=== PATIENT | female | born 1985 | race American Indian/Alaskan Native ===

== ENCOUNTER 2017-04-08 14:26 | Emergency (ER) | payer SELFPAY ==
[2017-04-08 16:12] LABS: Alanine Aminotransferase 10 units/L (7-56); Albumin/Globulin Ratio 1.6 %; Alkaline Phosphatase 57 units/L (35-129); Anion Gap 17 mmol/L; Blood Urea Nitrogen 12 mg/dL (7-17); Calcium 9.3 mg/dL (8.4-10.2); Carbon Dioxide 25 mmol/L (22-30); Chloride 103.5 mmol/L (98-107); Glucose 79 mg/dL (65-100); Potassium 4.3 mmol/L (3.6-5.0); Sodium 141 mmol/L (137-145); Total Protein 6.5 g/dL (6.3-8.2)
[2017-04-08 16:24] LABS: Basophils % (Auto) 0.9 % (0.0-1.8); Eosinophils % (Auto) 1.7 % (0.0-4.3); Hematocrit 40.6 % (30.3-42.9); Hemoglobin 13.4 gm/dl (10.1-14.3); Mean Corpuscular HGB Conc 33 % (30-34); Mean Corpuscular Hemoglobin 32 pg (28-32); Mean Corpuscular Volume 96 fl (79-97); Platelet Count 261 K/mm3 (140-440); Red Blood Count 4.24 M/mm3 (3.65-5.03); White Blood Count 5.3 K/mm3 (4.5-11.0)
[2017-04-08] MEDS ORDERED: KEPPRA 1,000 MG/NS 0.75% 100ML 1,000 MG/100 ML BAG IV ONE (16:50)
[2017-04-08] MEDS ORDERED: FIORICET PO ONE (16:50)
--- NOTE | 2017-04-08 16:57 | Emergency Department Report ---
HPI - General Chief Complaint: Seizure Time Seen by Provider: 04/08/17 16:41 - HPI HPI: Room 9 The patient is a 31-year-old female presenting with a chief complaint seizure. Patient has history of multiple sclerosis and seizures. The patient states she' s had seizures in 2011 and supposed to take Keppra. Patient states she has not had Keppra since October 2016. Patient states today upon became clammy and she felt palpitations and then reportedly had a seizure at home. EMS was called and patient was transported to the ED. The patient states she now feels tired has a headache and jaw pain. Patient states suffered see the other symptoms are consistent with how she feels after previous seizures. Location: Central nervous system Duration: Today just prior to arrival Quality: Headache Severity:03/29 Modifying factors: [see above] Context: [see above] Mode of transportation: [not driving] ED Past Medical Hx - Past Medical History Hx of Cancer: Yes (cervical CA diagnosed 2014 no tx or f/u) Additional medical history: Multiple sclerosis - Surgical History Additional Surgical History: Neck biopsy - Family History Family history: no significant - Social History Smoking Status: Current Every Day Smoker (1/3 pack per day) Substance Use Type: Alcohol (occasional), Marijuana - Medications Home Medications: Home Medications Medication Instructions Recorded Confirmed Last Taken Type Butalb/Acetamin/Caff 50-325-40 2 tab PO Q8H PRN #10 tablet 04/08/17 Unknown Rx [Fioricet] levETIRAcetam [Keppra TAB] 500 mg PO BID #90 tablet 04/08/17 Unknown Rx ED Review of Systems ROS: Stated complaint: SEIZURE AND HEADACHE Other details as noted in HPI Comment: All other systems reviewed and negative Constitutional: malaise. denies: chills, fever Eyes: denies: eye pain, eye discharge, vision change ENT: denies: ear pain, throat pain Respiratory: denies: cough, shortness of breath, wheezing Cardiovascular: denies: chest pain, palpitations Endocrine: no symptoms reported Gastrointestinal: denies: abdominal pain, nausea, diarrhea Genitourinary: denies: urgency, dysuria, discharge Musculoskeletal: denies: back pain, joint swelling, arthralgia Skin: denies: rash, lesions Neurological: headache, other (seizure) Psychiatric: denies: anxiety, depression Hematological/Lymphatic: denies: easy bleeding, easy bruising Physical Exam - Physical Exam Vital Signs: Vital Signs 04/08/17 14:53 Temperature 98.4 F Pulse Rate 62 Respiratory 16 Rate Blood Pressure 101/41 O2 Sat by Pulse 100 Oximetry Physical Exam: GENERAL: The patient is well-developed well-nourished female lying on stretcher not appearing to be in acute distress. [] HEENT: Normocephalic. Atraumatic. Extraocular motions are intact. Patient has moist mucous membranes. NECK: Supple. No meningitic signs are noted. There is no adenopathy noted. CHEST/LUNGS: Clear to auscultation. There is no respiratory distress noted. HEART/CARDIOVASCULAR: Regular. There is no tachycardia. There is no gallop rub or murmur. ABDOMEN: Abdomen is soft, nontender. Patient has normal bowel sounds. There is no abdominal distention. SKIN: There is no rash. There is no edema. There is no diaphoresis. NEURO: The patient is awake, alert, and oriented. The patient is cooperative. The patient has no focal neurologic deficits. The patient has normal speech. Cranial nerves II through XII grossly intact, no drift, stain wiper equal bilaterally MUSCULOSKELETAL: There is no evidence of acute injury. ED Course Vital Signs 04/08/17 14:53 Temperature 98.4 F Pulse Rate 62 Respiratory 16 Rate Blood Pressure 101/41 O2 Sat by Pulse 100 Oximetry ED Medical Decision Making - Lab Data Result diagrams: 04/08/17 15:36 04/08/17 15:36 Laboratory Tests 04/08/17 04/08/17 04/08/17 15:36 15:36 16:42 WBC 5.3 RBC 4.24 Hgb 13.4 Hct 40.6 MCV 96 MCH 32 MCHC 33 RDW 13.0 L Plt Count 261 Lymph % (Auto) 35.8 H Gilpin % (Auto) 9.4 H Eos % (Auto) 1.7 Baso % (Auto) 0.9 Lymph # 1.9 Gilpin # 0.5 Eos # 0.1 Baso # 0.0 Seg Neutrophils % 52.2 Seg Neutrophils # 2.7 Sodium 141 Potassium 4.3 Chloride 103.5 Carbon Dioxide 25 Anion Gap 17 BUN 12 Creatinine 0.6 L Estimated GFR > 60 BUN/Creatinine Ratio 20.00 Glucose 79 Calcium 9.3 Total Bilirubin 0.20 AST 11 ALT 10 Alkaline Phosphatase 57 Total Protein 6.5 Albumin 4.0 Albumin/Globulin Ratio 1.6 HCG, Qual Negative - Differential Diagnosis seizure Critical care attestation.: If time is entered above; I have spent that time in minutes in the direct care of this critically ill patient, excluding procedure time. ED Disposition Clinical Impression: Seizure Disposition: TO HOME OR SELFCARE Is pt being admited?: No Does the pt Need Aspirin: No Condition: Stable Instructions: Recurrent Seizures Adult (ED) Additional Instructions: Return to the emergency department immediately should you develop worsening symptoms, fever, inability to tolerate food or liquid or any other concerns. Prescriptions: Butalb/Acetamin/Caff 50-325-40 [Fioricet] 2 tab PO Q8H PRN #10 tablet PRN Reason: Headache levETIRAcetam [Keppra TAB] 500 mg PO BID #90 tablet Referrals: [facility] [place] [Outside] - [place] (Please follow up with the [facility] clinic immediately for further evaluation of your previous diagnosis of cervical cancer) PILAR WHYTE MD [Staff Physician] - [place] (Dr. Whyte is an [employer]. Please follow up with her for further evaluation of your previous diagnosis of cervical cancer) Time of Disposition: 17:01
[2017-04-08 18:01] VITALS: BP 109/40
== END 2017-04-08 17:45 | disposition home or self-care (01) ==
LOC: ED 14:26
DX: R56.9 Unspecified convulsions (principal); F17.210 Nicotine dependence, cigarettes, uncomplicated; F12.10 Cannabis abuse, uncomplicated
CPT/HCPCS: 36415; 80053; 84703; 85025; 93005; 93010; 96374; 99284; J1953

== ENCOUNTER 2019-02-22 11:02 | Emergency (ER) | payer MEDICAID, OTHER ==
[2019-02-22] MEDS ORDERED: BOOSTRIX IM ONE (11:12)
[2019-02-22] MEDS ORDERED: KEPPRA 1,000 MG/NS 0.75% 100ML 1,000 MG/100 ML BAG IV ONE (11:12)
[2019-02-22] MEDS ORDERED: NACL 0.9% 500 ML 500 ML IV ONE ×2 (11:12)
[2019-02-22] MEDS ORDERED: MORPHINE IV ONE (11:12)
[2019-02-22] MEDS ORDERED: ATIVAN IV STA (11:14)
[2019-02-22] MEDS ORDERED: ATIVAN ONE (11:18)
--- NOTE | 2019-02-22 11:18 | Emergency Department Report ---
ED General Adult HPI - General Chief complaint: Head Injury Stated complaint: FALL/15 STEPS Time Seen by Provider: 02/22/19 11:06 Source: patient, RN notes reviewed Mode of arrival: Ambulatory Limitations: No Limitations - History of Present Illness Initial comments: This is a 34-year-old female. The patient is not known to this provider previously. The patient may have a history of seizure disorder, she is not certain. She states that she is not . Patient presents to the ER with a complaint of weakness and headache after mechanical fall yesterday. She apparently fell down 15 stairs. This happened last night. She did not seek medical attention. She complains of superior lip pain, and right thumb pain. She also complains of neck pain. She is not taking any seizure medications since September. Apparently, she had a seizure in the waiting room. In the emergency room, on my evaluation, initially presents with a GCS of 15. Airway open, patent and intact. Breath sounds clear to auscultation bilaterally. 2+ pulses in the bilateral upper, lower extremities. Blood pressure 126/57. GCS of 15. On exposure, abrasions noted to superior lip. Secondary survey unremarkable. Shortly after my initial primary survey, was reported to have a convulsive event, which lasted for a few seconds, and then resolved. Shortly thereafter, vomited times one. Patient now awake, anxious, protecting airway. Emergently loaded with Keppra, IV fluids. She will be given pain medication. Code trauma called overhead. -: hour(s) Location: head, neck, right, upper extremity Consistency: constant Improves with: rest Worsens with: movement - Related Data Previous Rx's Medication Instructions Recorded Last Taken Type Butalb/Acetamin/Caff 50-325-40 2 tab PO Q8H PRN #10 tablet 04/08/17 Unknown Rx [Fioricet 50-325-40] levETIRAcetam [Keppra TAB] 500 mg PO BID #90 tablet 04/08/17 Unknown Rx Allergies Allergy/AdvReac Type Severity Reaction Status Date / Time No Known Allergies Allergy Verified 02/22/19 11:03 ED Review of Systems ROS: Stated complaint: FALL/15 STEPS Other details as noted in HPI Constitutional: malaise. denies: fever Eyes: denies: eye discharge ENT: other (lip contusion, left upper). denies: epistaxis Respiratory: denies: cough Cardiovascular: denies: palpitations Gastrointestinal: nausea, vomiting Musculoskeletal: arthralgia, myalgia Skin: lesions Neurological: headache Psychiatric: anxiety ED Past Medical Hx - Past Medical History Additional medical history: Multiple sclerosis - Surgical History Additional Surgical History: Neck biopsy - Social History Smoking Status: Current Every Day Smoker (1/3 pack per day) Substance Use Type: Alcohol (occasional), Marijuana - Medications Home Medications: Home Medications Medication Instructions Recorded Confirmed Last Taken Type Butalb/Acetamin/Caff 50-325-40 2 tab PO Q8H PRN #10 tablet 04/08/17 Unknown Rx [Fioricet 50-325-40] levETIRAcetam [Keppra TAB] 500 mg PO BID #90 tablet 04/08/17 Unknown Rx ED Physical Exam - General Limitations: No Limitations General appearance: alert, anxious, in distress - Head Head exam: Present: atraumatic, normocephalic - Eye Eye exam: Present: normal appearance, PERRL, EOMI. Absent: nystagmus - ENT ENT exam: Present: normal exam (inferior lip abrasion), mucous membranes moist, TM's normal bilaterally - Neck Neck exam: Present: normal inspection, tenderness - Respiratory Respiratory exam: Present: normal lung sounds bilaterally. Absent: respiratory distress - Cardiovascular Cardiovascular Exam: Present: regular rate, normal rhythm, normal heart sounds. Absent: bradycardia, tachycardia, irregular rhythm, systolic murmur, diastolic murmur, rubs, gallop - GI/Abdominal GI/Abdominal exam: Present: soft. Absent: distended, tenderness, guarding, rebound, rigid, pulsatile mass - Rectal Rectal exam: Present: normal inspection, other (chaperoned by nurse Ines Woodruff) - External exam: Present: normal external exam, other (chaperoned by nurse Ines Koch) - Extremities Exam Extremities exam: Present: normal inspection, tenderness (tenderness at the base of the right thumb.), other (2+ pulses noted in the bilateral upper, lower extremities. Compartments soft. No long bony tenderness. The pelvis is stable.). Absent: calf tenderness - Back Exam Back exam: Present: normal inspection. Absent: tenderness, CVA tenderness (R), paraspinal tenderness, vertebral tenderness - Neurological Exam Neurological exam: Present: alert, oriented X3, other (Extraocular movements intact. Tongue midline. No facial droop. Facial sensation intact to light touch in the V1, V2, V3 distribution bilaterally. 5 and 5 strength in 4 extremities.. Sensation is intact to light touch in 4 extremities.). Absent: motor sensory deficit - Psychiatric Psychiatric exam: Present: anxious - Skin Skin exam: Present: warm, abrasion ED Course Vital Signs 02/22/19 02/22/19 02/22/19 11:45 11:54 11:56 Temperature 98.1 F Pulse Rate 81 74 Respiratory 15 18 18 Rate Blood Pressure 105/56 Blood Pressure 121/83 [Left] O2 Sat by Pulse 100 100 100 Oximetry 02/22/19 02/22/19 02/22/19 12:15 12:45 13:10 Temperature Pulse Rate 62 90 65 Respiratory 12 18 13 Rate Blood Pressure 108/61 113/71 Blood Pressure 95/53 [Left] O2 Sat by Pulse 100 97 99 Oximetry - Reevaluation(s) Reevaluation #1: 02/22/19 11:28 Differential diagnosis, including but not limited to, intracranial injury, cervical spine injury, facial injury, thumb injury, breakthrough seizure, concussion, traumatic seizures Assessment and plan: 33-year-old female with a reported mechanical fall, possible history of seizure disorder, now, having had 2 seizures in the ER, initial GCS of 15, current GCS of 15, protecting her airway, and hemodynamically stable. Emergent imaging pending. Screening laboratory studies pending. Omer sea has been treated, pain has been treated, seizures have been treated, we will reassess after her data points have resulted. Reevaluation #2: 02/22/19 12:21 CT scan of the brain, facial bones, cervical spine negative for acute disease. Reevaluation #3: 02/22/19 13:12 X-ray of the right hand, chest, pelvis negative for acute disease. No addit ional convulsive events. Resting comfortably. No acute distress. Reevaluation #4: 02/22/19 13:43 No midline cervical spine tenderness on repeat examination. Speaking in full sentences, has a GCS of 15. No recurrent convulsive events. Cervical collar is cleared. Patient drinking soda, which we have not cleared her to do. Explained to patient that plan is to transfer her to [facility], for history of blunt trauma, with multiple convulsions, as this hospital does not have neurosurgery, or trauma surgery available for consultation. Patient endorses understanding and is amenable to transfer. Patient is accepted by Dr. Cedeno ED Medical Decision Making - Lab Data Result diagrams: 02/22/19 11:16 02/22/19 11:16 Lab Results 02/22/19 02/22/19 Range/Units 11:16 11:16 WBC 9.6 (4.5-11.0) K/mm3 RBC 4.48 (3.65-5.03) M/mm3 Hgb 14.5 H (10.1-14.3) gm/dl Hct 42.9 (30.3-42.9) % MCV 96 (79-97) fl MCH 33 H (28-32) pg MCHC 34 (30-34) % RDW 13.3 (13.2-15.2) % Plt Count 295 (140-440) K/mm3 Lymph % (Auto) 28.1 (13.4-35.0) % Tillman % (Auto) 10.7 H (0.0-7.3) % Eos % (Auto) 1.2 (0.0-4.3) % Baso % (Auto) 0.4 (0.0-1.8) % Lymph # 2.7 (1.2-5.4) K/mm3 Tillman # 1.0 H (0.0-0.8) K/mm3 Eos # 0.1 (0.0-0.4) K/mm3 Baso # 0.0 (0.0-0.1) K/mm3 Seg Neutrophils % 59.6 (40.0-70.0) % Seg Neutrophils # 5.7 (1.8-7.7) K/mm3 POC Glucose 81 (70-105) Vital Signs 02/22/19 02/22/19 11:54 11:56 Temperature 98.1 F Pulse Rate 74 Respiratory 18 18 Rate Blood Pressure 121/83 [Left] O2 Sat by Pulse 100 100 Oximetry Lab Results 02/22/19 02/22/19 02/22/19 Range/Units 11:16 11:16 11:16 WBC 9.6 (4.5-11.0) K/mm3 RBC 4.48 (3.65-5.03) M/mm3 Hgb 14.5 H (10.1-14.3) gm/dl Hct 42.9 (30.3-42.9) % MCV 96 (79-97) fl MCH 33 H (28-32) pg MCHC 34 (30-34) % RDW 13.3 (13.2-15.2) % Plt Count 295 (140-440) K/mm3 Lymph % (Auto) 28.1 (13.4-35.0) % Tillman % (Auto) 10.7 H (0.0-7.3) % Eos % (Auto) 1.2 (0.0-4.3) % Baso % (Auto) 0.4 (0.0-1.8) % Lymph # 2.7 (1.2-5.4) K/mm3 Tillman # 1.0 H (0.0-0.8) K/mm3 Eos # 0.1 (0.0-0.4) K/mm3 Baso # 0.0 (0.0-0.1) K/mm3 Seg Neutrophils % 59.6 (40.0-70.0) % Seg Neutrophils # 5.7 (1.8-7.7) K/mm3 PT 12.8 (12.2-14.9) Sec. INR 0.99 (0.87-1.13) Sodium (137-145) mmol/L Potassium (3.6-5.0) mmol/L Chloride (98-107) mmol/L Carbon Dioxide (22-30) mmol/L Anion Gap mmol/L BUN (7-17) mg/dL Creatinine (0.7-1.2) mg/dL Estimated GFR ml/min BUN/Creatinine Ratio % Glucose (65-100) mg/dL POC Glucose 81 (70-105) Calcium (8.4-10.2) mg/dL Magnesium (1.7-2.3) mg/dL Total Bilirubin (0.1-1.2) mg/dL AST (5-40) units/L ALT (7-56) units/L Alkaline Phosphatase (35-129) units/L Total Creatine Kinase (30-135) units/L Total Protein (6.3-8.2) g/dL Albumin (3.9-5) g/dL Albumin/Globulin Ratio % HCG, Quant (0-4) mIU/mL Plasma/Serum Alcohol (0-0.07) % 07/06/19 07/06/19 07/06/19 Range/Units 11:16 11:16 11:16 WBC (4.5-11.0) K/mm3 RBC (3.65-5.03) M/mm3 Hgb (10.1-14.3) gm/dl Hct (30.3-42.9) % MCV (79-97) fl MCH (28-32) pg MCHC (30-34) % RDW (13.2-15.2) % Plt Count (140-440) K/mm3 Lymph % (Auto) (13.4-35.0) % Tillman % (Auto) (0.0-7.3) % Eos % (Auto) (0.0-4.3) % Baso % (Auto) (0.0-1.8) % Lymph # (1.2-5.4) K/mm3 Tillman # (0.0-0.8) K/mm3 Eos # (0.0-0.4) K/mm3 Baso # (0.0-0.1) K/mm3 Seg Neutrophils % (40.0-70.0) % Seg Neutrophils # (1.8-7.7) K/mm3 PT (12.2-14.9) Sec. INR (0.87-1.13) Sodium 140 (137-145) mmol/L Potassium 3.9 (3.6-5.0) mmol/L Chloride 105.2 (98-107) mmol/L Carbon Dioxide 20 L (22-30) mmol/L Anion Gap 19 mmol/L BUN 7 (7-17) mg/dL Creatinine 0.7 (0.7-1.2) mg/dL Estimated GFR > 60 ml/min BUN/Creatinine Ratio 10 % Glucose 101 H (65-100) mg/dL POC Glucose (70-105) Calcium 9.0 (8.4-10.2) mg/dL Magnesium 1.70 (1.7-2.3) mg/dL Total Bilirubin 0.50 (0.1-1.2) mg/dL AST 21 (5-40) units/L ALT 13 (7-56) units/L Alkaline Phosphatase 58 (35-129) units/L Total Creatine Kinase 119 (30-135) units/L Total Protein 7.7 (6.3-8.2) g/dL Albumin 4.2 (3.9-5) g/dL Albumin/Globulin Ratio 1.2 % HCG, Quant (0-4) mIU/mL Plasma/Serum Alcohol < 0.01 (0-0.07) % 02/22/19 Range/Units 11:16 WBC (4.5-11.0) K/mm3 RBC (3.65-5.03) M/mm3 Hgb (10.1-14.3) gm/dl Hct (30.3-42.9) % MCV (79-97) fl MCH (28-32) pg MCHC (30-34) % RDW (13.2-15.2) % Plt Count (140-440) K/mm3 Lymph % (Auto) (13.4-35.0) % Tillman % (Auto) (0.0-7.3) % Eos % (Auto) (0.0-4.3) % Baso % (Auto) (0.0-1.8) % Lymph # (1.2-5.4) K/mm3 Tillman # (0.0-0.8) K/mm3 Eos # (0.0-0.4) K/mm3 Baso # (0.0-0.1) K/mm3 Seg Neutrophils % (40.0-70.0) % Seg Neutrophils # (1.8-7.7) K/mm3 PT (12.2-14.9) Sec. INR (0.87-1.13) Sodium (137-145) mmol/L Potassium (3.6-5.0) mmol/L Chloride (98-107) mmol/L Carbon Dioxide (22-30) mmol/L Anion Gap mmol/L BUN (7-17) mg/dL Creatinine (0.7-1.2) mg/dL Estimated GFR ml/min BUN/Creatinine Ratio % Glucose (65-100) mg/dL POC Glucose (70-105) Calcium (8.4-10.2) mg/dL Magnesium (1.7-2.3) mg/dL Total Bilirubin (0.1-1.2) mg/dL AST (5-40) units/L ALT (7-56) units/L Alkaline Phosphatase (35-129) units/L Total Creatine Kinase (30-135) units/L Total Protein (6.3-8.2) g/dL Albumin (3.9-5) g/dL Albumin/Globulin Ratio % HCG, Quant < 2 (0-4) mIU/mL Plasma/Serum Alcohol (0-0.07) % - EKG Data -: EKG Interpreted by Mo EKG shows normal: sinus rhythm Rate: normal - EKG Data 02/22/19 11:29 EKG shows sinus, 78 bpm, normal axis, QTC 448 ms, borderline atrial enlargement, sinus arrhythmia, no endorsement of chest pain, this EKG is not consistent with ST elevation myocardial infarction. - Radiology Data Radiology results: pending, report reviewed, image reviewed Noncontrast CT scan of the brain, facial bones, cervical spine negative for acute disease. Plain films of the right hand, pelvis, chest negative for acute disease. Critical care attestation.: If time is entered above; I have spent that time in minutes in the direct care of this critically ill patient, excluding procedure time. ED Disposition Clinical Impression: Fall (on) (from) other stairs and steps, initial encounter, Seizures, Noncompliance with medication regimen Disposition: [id number]/TX-02 SHRT-TRM GEN HOSP IP Is pt being admited?: No Does the pt Need Aspirin: No Condition: Stable Referrals: PRIMARY CARE, [Primary Care Provider] - 3-5 Days
[2019-02-22] MEDS ORDERED: ZOFRAN IV ONE (11:20)
[2019-02-22 11:22] LABS: Basophils % (Auto) 0.4 % (0.0-1.8); Eosinophils # (Auto) 0.1 K/mm3 (0.0-0.4); Eosinophils % (Auto) 1.2 % (0.0-4.3); Hematocrit 42.9 % (30.3-42.9); Hemoglobin 14.5 gm/dl (10.1-14.3); Lymphocytes # (Auto) 2.7 K/mm3 (1.2-5.4); Lymphocytes % (Auto) 28.1 % (13.4-35.0); Mean Corpuscular HGB Conc 34 % (30-34); Mean Corpuscular Volume 96 fl (79-97); Monocytes % (Auto) 10.7 % (0.0-7.3); Platelet Count 295 K/mm3 (140-440); Red Blood Count 4.48 M/mm3 (3.65-5.03); Red Cell Distribution Width 13.3 % (13.2-15.2)
[2019-02-22] MEDS ORDERED: ZOFRAN ONE (11:23)
[2019-02-22 11:34] LABS: INR 0.99 (0.87-1.13)
[2019-02-22 11:38] LABS: Alanine Aminotransferase 13 units/L (7-56); Albumin 4.2 g/dL (3.9-5); BUN/Creatinine Ratio 10; Blood Urea Nitrogen 7 mg/dL (7-17); Hemolysis Index 74
--- NOTE | 2019-02-22 12:05 | Cat Scan Report ---
CT cervical spine without contrast INDICATION: MAIN: Trauma--FALL HX OF SEIZURES NO OLD CT SEEN WO CONTRAST. TECHNIQUE: Axial imaging performed through the cervical spine without the use of contrast. Sagittal and coronal reconstructed images were also reviewed. All CT scans at this location are performed us ing CT dose reduction for ALARA by means of automated exposure control. COMPARISON: None FINDINGS: Alignment: Spinal alignment is normal. Bones: There is no acute osseous abnormality. Mild multilevel discogenic DJD is present. Soft tissues: No acute or significant incidental soft tissue abnormality. IMPRESSION: No acute abnormality. Signer Name: Donaldo Limon MD Signed: 02/22/2019 12:01 PM Workstation Name: [id number]
--- NOTE | 2019-02-22 12:05 | Cat Scan Report ---
CT HEAD WITHOUT CONTRAST INDICATION / CLINICAL INFORMATION: Patient fell sustaining head injury. History of seizures. TECHNIQUE: All CT scans at this location are performed using CT dose reduction for ALARA by means of automated e xposure control. COMPARISON: None available. FINDINGS: HEMORRHAGE: No evidence of intracranial hemorrhage or extra-axial fluid collection. EXTRA-AXIAL SPACES: Cortical sulci, sylvian fissures and basilar cisterns have an unremarkable appear ance. VENTRICULAR SYSTEM: The ventricular system is of normal size and configuration. CEREBRAL PARENCHYMA: No areas of abnormal brain parenchymal attenuation are identified. There is no i ndication of recent infarction. MIDLINE SHIFT OR HERNIATION: There is no mass effect. CEREBELLUM / BRAINSTEM: Brainstem and cerebellum have an unremarkable appearance. INTRACRANIAL VESSELS:No abnormalities are identified on this noncontrast head CT. ORBITS: Bilaterally symmetrical lacrimal gland enlargement is noted. Consider the possibility of Sjog matthew's syndrome. SOFT TISSUES of HEAD: No significant abnormality. CALVARIUM: Evaluation of bone windows reveals no abnormalities. PARANASAL SINUSES / MASTOID AIR CELLS: Paranasal sinuses are free from inflammatory mucosal disease. Mastoid air cells are normally pneumatized. IMPRESSION: 1. No intracranial abnormalities are identified on head CT without contrast. 2. Bilateral lacrimal gland enlargement. Signer Name: Enrrique Pineda MD Signed: 02/22/2019 12:01 PM Workstation Name: [email or web address]
--- NOTE | 2019-02-22 12:07 | Cat Scan Report ---
CT maxillofacial without contrast INDICATION : Trauma. Fall today with facial abrasions TECHNIQUE: Axial imaging performed through the face with reconstructed images also reviewed. All CT scans at this location are performed using CT dose reduction for ALARA by means of automated exposur e control. COMPARISON: CT head from today FINDINGS: No acute fracture identified. The sinuses and visualized mastoid air cells are clear. Orbi ts are normal. No significant soft tissue injury such as a laceration or focal hematoma. IMPRESSION: Unremarkable exam. Signer Name: Donaldo Limon MD Signed: 02/22/2019 12:02 PM Workstation Name: [id number]
--- NOTE | 2019-02-22 13:04 | XRay Report ---
AP PELVIS INDICATION / CLINICAL INFORMATION: Trauma. Fell down stairs today while having a seizure with pelvic pain. COMPARISON: None available. FINDINGS: BONES / JOINT(S): The hip and SI joint spaces are well-maintained. There is no evidence of fracture o r dislocation. SOFT TISSUES: No significant abnormality. ADDITIONAL FINDINGS: None. IMPRESSION: No acute abnormality. Signer Name: Moisés Baca MD Signed: 02/22/2019 1:00 PM Workstation Name: [id number]
--- NOTE | 2019-02-22 13:06 | XRay Report ---
CHEST 1 VIEW 12:17 PM INDICATION / CLINICAL INFORMATION: Trauma. Fell down stairs today while having a seizure. Chest pain/aspiration. COMPARISON: None available. FINDINGS: SUPPORT DEVICES: None. HEART / MEDIASTINUM: The heart size and pulmonary vasculature are normal. The aorta is normal in job farheen. LUNGS / PLEURA: No significant pulmonary or pleural abnormality. A nipple shadow overlies the right l ower hemithorax. There is no evidence of pneumothorax. ADDITIONAL FINDINGS: No acute osseous abnormality is seen. IMPRESSION: No acute findings. There is no evidence of aspiration pneumonia. Signer Name: Moisés Baca MD Signed: 02/22/2019 1:01 PM Workstation Name: [id number]
--- NOTE | 2019-02-22 13:13 | XRay Report ---
RIGHT HAND 3 VIEWS INDICATION / CLINICAL INFORMATION: Trauma . Fell down stairs today while having a seizure. Injury to first digit near its base. COMPARISON: None available. FINDINGS: BONES / JOINT(S): No acute fracture or subluxation. No significant arthritis. SOFT TISSUES: No significant abnormality. ADDITIONAL FINDINGS: None. IMPRESSION: No acute abnormality. Signer Name: Moisés Baca MD Signed: 02/22/2019 1:09 PM Workstation Name: [id number]
[2019-02-22 17:05] VITALS: BP 102/55
== END 2019-02-22 17:05 | disposition short-term general hospital (02) ==
LOC: ED 11:02
DX: G40.909 Epilepsy, unspecified, not intractable, without status epilepticus (principal); Z91.14 Patient's other noncompliance with medication regimen; F17.200 Nicotine dependence, unspecified, uncomplicated; F12.10 Cannabis abuse, uncomplicated; W10.8XXA Fall (on) (from) other stairs and steps, initial encounter; Y93.89 Activity, other specified; Y92.89 Other specified places as the place of occurrence of the external cause; Y99.8 Other external cause status
CPT/HCPCS: 36415; 70450; 70486; 71045; 72125; 72170; 73130; 80053; 82550; 82962; 83735; 84702; 85025; 85610; 90471; 90715; 93005; 93010; 96365; 96375; 99285; G0480; J1953; J2060; J2270; J2405; J7040; 80320